=== PATIENT | female | born 1940 | race Caucasian/White ===

== ENCOUNTER 2017-11-21 10:03 | Day surgery (SDC) | payer MEDICARE | END 2017-11-22 12:48 | disposition home or self-care (01) | LOC: GIL 10:03 | DX: K62.5 Hemorrhage of anus and rectum (principal); Z53.8 Procedure and treatment not carried out for other reasons ==

== ENCOUNTER 2017-12-03 06:54 | Day surgery (SDC) | payer MEDICARE, BC ==
[2017-12-03] MEDS ORDERED: LIDOCAINE 4% CR TOP (08:30)
[2017-12-03] MEDS ORDERED: LIDOCAINE 2% (SDV) 5 ML INJ (09:29)
[2017-12-03] MEDS ORDERED: PROPOFOL 20 ML ×3 (09:29→10:11)
== END 2017-12-03 11:17 | disposition home or self-care (01) ==
LOC: GIL 06:54
DX: K62.7 Radiation proctitis (principal); E03.9 Hypothyroidism, unspecified
CPT/HCPCS: 45378

== ENCOUNTER 2018-01-01 09:41 | Day surgery (SDC) | payer MEDICARE | END 2018-01-01 17:11 | disposition home or self-care (01) | LOC: GIL 09:41 | DX: K62.5 Hemorrhage of anus and rectum (principal); Z53.8 Procedure and treatment not carried out for other reasons ==